=== PATIENT | female | born 1950 | race Caucasian/White ===

== ENCOUNTER → 2018-12-23 | Outpatient (CLI) | payer OTHER | END | disposition home or self-care (01) | LOC: PCVCCLINIC 15:00 | PROVIDERS: ATTEND Internal Medicine Cardiovascular Disease | DX: R00.2 Palpitations (principal); R06.00 Dyspnea, unspecified; R03.0 Elevated blood-pressure reading, without diagnosis of hypertension; E78.5 Hyperlipidemia, unspecified; I10 Essential (primary) hypertension; Z87.891 Personal history of nicotine dependence; Z88.1 Allergy status to other antibiotic agents; Z88.8 Allergy status to other drugs, medicaments and biological substances | CPT/HCPCS: 93005; G0463 ==

== ENCOUNTER → 2019-01-13 | Outpatient (CLI) | payer OTHER ==
--- NOTE | 2019-01-13 15:55 | PCVCIMAG ---
APPROVED REPORT Study performed: 01/13/2019 14:32:11 EXAM: Comprehensive 2D, Doppler, and color-flow Echocardiogram Patient Location: Echo lab Status: routine BSA: 1.93 HR: 78 bpmBP: 164/80 mmHg Rhythm: NSR Other Information Study Quality: Adequate Risk Factors: Cardiac Risk Factors: HTN Indications Dyspnea Palpitations obesity 2D Dimensions IVSd: 11.39 (7-11mm) LVDd: 46.23 mm PWd: 10.21 (7-11mm)Ascending Ao: 31.98 (22-36mm) LVDs: 29.20 (25-40mm) Left Atrium: 39.07 (27-40mm) Aortic Root: 29.87 mm LV Single Plane 4CH: 48.18 % LV Single Plane 2CH: 54.66 % Biplane EF: 51.6 % Volumes Left Atrial Volume (Systole) Single Plane 4CH: 52.46 mLSingle Plane 2CH: 38.76 mL LA ESV Index: 24.00 mL/m2 Aortic Valve AoV Peak Sagar.: 1.57 m/s AO Peak Gr.: 9.82 mmHgLVOT Max P.76 mmHg LVOT Max V: 1.30 m/s Mitral Valve E/A Ratio: 0.8 MV Decel. Time: 300.36 ms MV E Max Sagar.: 0.77 m/s MV A Sagar.: 0.91 m/s IVRT: 79.58 ms Pulmonary Valve PV Peak Sagar.: 0.97 m/sPV Peak Gr.: 3.78 mmHg Pulmonary Vein P Vein S: 0.40 m/sP Vein A: 0.36 m/s P Vein D: 0.57 m/sP Vein A Dur.: 128.0 msec P Vein S/D Ratio: 0.70 Tricuspid Valve TR Peak Sagar.: 2.73 m/s TR Peak Gr.: 29.78 mmHg TV Vmax: 0.68 m/s Left Ventricle The left ventricle is normal size. There is normal LV segmental wall motion. There is normal left ventricular wall thickness. Left ventricular systolic function is normal. The left ventricular ejection fraction is within the normal range. LVEF is 55%. Grade I - abnormal relaxation pattern. Right Ventricle The right ventricle is normal size. The right ventricular systolic function is normal. Atria The left atrium size is normal. The right atrium size is normal. Aortic Valve The aortic valve is normal in structure. No aortic regurgitation is present. There is no aortic valvular stenosis. Mitral Valve The mitral valve is normal in structure. Trace mitral regurgitation. No evidence of mitral valve stenosis. Tricuspid Valve The tricuspid valve is normal in structure. Mild tricuspid regurgitation with PAP of 37 mmHg. Pulmonic Valve The pulmonary valve is normal in structure. There is no pulmonic valvular regurgitation. Great Vessels The aortic root is normal in size. IVC is normal in size and collapses >50% with inspiration. Pericardium There is no pericardial effusion. There is no pleural effusion. <Conclusion> The left ventricle is normal size. There is normal left ventricular wall thickness. Left ventricular systolic function is normal. Grade I - abnormal relaxation pattern. The right ventricle is normal size. The left atrium size is normal. The right atrium size is normal. The aortic valve is normal in structure. Trace mitral regurgitation. Mild tricuspid regurgitation with PAP of 37 mmHg.
--- NOTE | 2019-01-13 15:58 | PCVCIMAG ---
APPROVED REPORT Study performed: 01/13/2019 15:06:57 Exam: Stress Echocardiogram Indication: Palpitations , Dyspnea , Hypertension Patient Location: Echo lab Stress Nurse: Michela Darby RN Status: routine Ht: 5 ft 3 in HR: 82 bpm BP: 164/80 mmHg Rhythm: NSR Procedure The patient underwent an Exercise Stress Test using the Shaquille Protocol. Blood pressure, heart rate, and EKG were monitored. An Echocardiogram was performed by electronic warfare technician in four stages in quad fashion. At peak stress, four selected images were obtained and placed side by side with resting images for comparison. Stress Test Details Stress Test: Exercise stress testing was performed using a Shaquille protocol. HR Resting HR: 82 bpmMax Heart Rate (APMHR): 150 bpm Max HR Achieved: 155 bpmTarget HR (85% APMHR): 127 bpm % of APMHR: 103 Recovery HR: 91 bpm HR response to stress: Normal HR response to stress BP Resting BP: 164/80 mmHg Max BP: 204/80 mmHg Recovery BP: 150/70 mmHg BP response to stress: Normal blood pressure response to stress. ECG Resting ECG: Sinus Rhythm Stress ECG: Sinus Rhythm ST Change: Eqivocal Arrhythmia: PACs Recovery ECG: Sinus Rhythm Recovery ST Change: Normal Recovery Arrhythmia: None Clinical Reason for Termination: Dyspnea, Maximal effort Stress Symptoms: Dyspnea Exercise duration: 4 min 27 sec Highest Stage Achieved: Stage 2: 2.5 mph at 12% grade. Exercise capacity: 7 METs Overall Exercise Capacity for Age: Poor Scale: Sedentary Angina Score: None Pre-Stress Echo The resting Echocardiogram showed normal left ventricular contractility with an estimated Ejection Fraction of about 55%. Normal wall motion in all segments on baseline images. Post-Stress Echo The stress Echocardiogram showed normal left ventricular contractility with an estimated Ejection Fraction of about 60-65%. Normal augmentation of wall motion in all segments on post stress images. Clinical No clinical or ECG evidence for ischemia. Conclusion Clinical Response: Non-ischemic Exercise Capacity: Average Stress ECG Response: Equivocal Stress Echo Images: Non-ischemic The left ventricle is normal in size and wall thickness in both the rest and stress images. Other Information Study Quality: Adequate <Conclusion> The left ventricle is normal in size and wall thickness in both the rest and stress images.
== END | disposition home or self-care (01) ==
LOC: PCVCIMAG 14:03
PROVIDERS: ATTEND Internal Medicine Cardiovascular Disease
DX: I07.1 Rheumatic tricuspid insufficiency (principal); I10 Essential (primary) hypertension; E78.00 Pure hypercholesterolemia, unspecified; Z87.891 Personal history of nicotine dependence
CPT/HCPCS: 93306; 93351